=== PATIENT | male | born 1995 | race Caucasian/White ===

== ENCOUNTER 2020-06-23 19:08 | Emergency (ER) | payer SELFPAY ==
[~2020-06-23] VITALS: Ht 172.7 cm; Wt 73.0 kg
[2020-06-23 19:11] VITALS: BP 0/0
== END 2020-06-23 19:33 | disposition left against medical advice (07) ==
LOC: ER 19:08
DX: Z53.21 Procedure and treatment not carried out due to patient leaving prior to being seen by health care provider (principal)